=== PATIENT | female | born 1955 | race Caucasian/White ===

== ENCOUNTER 2021-09-20 08:48 | Emergency (ER) | payer MEDICARE, MEDICAID, SELFPAY ==
--- NOTE | ~2021-09-20 | XR_ITS ---
EXAMINATION: [id number] DATE: 09/20/2021 09:31 INDICATION: Left rib pain for one week after lifting fracture. TECHNIQUE: A frontal view of the chest and 2 views on 3 radiographs of the left ribs were obtained. COMPARISON: Chest 2 views 03/23/2019 FINDINGS: There is no pneumonia, pleural effusion, or pneumothorax. The heart size is normal. Surgica l clips in the right upper quadrant are likely from cholecystectomy. IMPRESSION: 1. No rib fracture. Reviewed, dictated and finalized at location A. GAS ANALYST IMPRESSION: 1. No rib fracture.
[2021-09-20 09:00] VITALS: BP 153/62; PULSE 83; RESP 16; TEMP 36.9; O2SAT 98
--- NOTE | 2021-09-20 10:07 | ED.GENADULT ---
HPI - General Adult General Chief complaint: Unspecified Stated complaint: Chest Pain Time Seen by Provider: 09/20/21 09:37 Source: patient and RN notes reviewed Mode of arrival: ambulatory Limitations: no limitations History of Present Illness HPI narrative: Patient presents today complaining of left anterior and lateral rib pain x1 week. She felt and heard a pop in her ribs when she was lifting some furniture 1 week ago and this pain has persisted and worsened since that time. She also reports a cough for the past 2 weeks. Denies shortness of breath. She currently rates her pain 10/10 and has been taking [place] that she takes for her chronic leg pain without relief of her rib pain. Pain increases with deep breath and movement. Patient has IDDM. MD complaint: Cough, rib pain Related Data Home Medications Medication Instructions Recorded Confirmed hydrocodone-acetaminophen 09/20/21 insulin glargine [Lantus Solostar SUBCUT 09/20/21 09/20/21 U-100 Insulin] Allergies Allergy/AdvReac Type Severity Reaction Status Date / Time iodine Allergy Severe Hives Verified 09/20/21 09:24 codeine Allergy Unknown Hives Verified 09/20/21 09:24 venom-honey bee Allergy Unknown Anaphylaxis Verified 09/20/21 09:24 Contrast Media Allergy Unknown Hives Uncoded 09/20/21 09:24 Review of Systems Review of Systems: CONSTITUTIONAL: Denies body aches, fever, chills, or sweats. EYES: Denies visual changes, redness, or discharge. ENT: Denies rhinorrhea, congestion, sore throat, or otalgia. CARDIOVASCULAR: Denies chest pain, palpitations, or edema. RESPIRATORY: Denies dyspnea. + Left rib pain, cough GASTROINTESTINAL: Denies abdominal pain, nausea, vomiting, or diarrhea. GENITOURINARY: Denies dysuria or hematuria. SKIN: Denies rash, itching, or wounds. MUSCULOSKELETAL: Denies back pain, joint pain, or myalgia. NEUROLOGIC: Denies headache, numbness, tingling, or weakness. PSYCH: Denies depression or anxiety. [facility] Family History Family History Mother Carcinoma of colon Acute myocardial infarction Family history of osteoporosis Family history of diabetes mellitus in first degree relative Father Family history of throat cancer Sibling Family history of thyroid disease Family history of seizure disorder Family history of congestive heart failure Other Diabetes mellitus Family history of cardiovascular disease Hypertension Social History Social History Alcohol intake: never Comments At time of signature, I have reviewed and agree with nursing past medical, surgical, social and family history unless otherwise noted. Please see nursing chart for further information. There is no relevant family history pertinent to the presenting complaint Exam Narrative: GENERAL: Well-appearing, well-nourished, and in no acute distress. HEAD: Normocephalic, atraumatic. EYES: EOMI. No redness or drainage. Conjunctivae normal. ENT: Mucous membranes pink and moist. NECK: Normal AROM. CHEST: No respiratory distress. Clear to auscultation. Tenderness to the anterior and lateral left lower ribs. No ecchymosis, erythema, edema, or deformity noted. No crepitus. HEART: Regular rate and rhythm. No murmur appreciated. Normal peripheral pulses. ABDOMEN: Soft, nontender, nondistended, normal active bowel sounds. MUSCULOSKELETAL: No bony tenderness. EXTREMITIES: Normal range of motion. No edema. SKIN: Warm, dry, no rash. Capillary refill normal. Normal skin turgor. NEURO: No focal deficits. Alert and oriented x3. Gait steady. PSYCH: Normal affect. No signs of depression or anxiety. Course Vital Signs Vital signs: Vital Signs Temperature 98.4 F 09/20/21 09:00 Pulse Rate 83 09/20/21 09:00 Respiratory Rate 16 09/20/21 09:00 Blood Pressure 153/62 H 09/20/21 09:00 Pulse Oximetry 98 09/20/21 09:00 T
== END 2021-09-20 10:15 | disposition home or self-care (01) ==
PROVIDERS: Emergency Provider Nurse Practitioner; PCP Family Medicine
DX: R05.9 Cough, unspecified (principal); S29.011A Strain of muscle and tendon of front wall of thorax, initial encounter; X50.0XXA Overexertion from strenuous movement or load, initial encounter; M81.0 Age-related osteoporosis without current pathological fracture; E11.9 Type 2 diabetes mellitus without complications; Z96.659 Presence of unspecified artificial knee joint
CPT/HCPCS: 71101; 99213; G0463

== ENCOUNTER 2022-03-09 09:01 | Emergency (ER) | payer MEDICARE, MEDICAID, SELFPAY ==
[2022-03-09] VITALS (7 sets, daily range): BP systolic 114–183; BP diastolic 64–85; PULSE 61–77; RESP 12–22; TEMP 36.6; O2SAT 98–99
--- NOTE | ~2022-03-09 | NM_ITS ---
EXAMINATION: NM pulmonary perfusion DATE: 03/09/2022 12:35 INDICATION: Chest pain. TECHNIQUE: 5.4 mCi Tc-99m MAA was administered intravenously for perfusion images. Scintigraphic rosa ges of the chest were obtained. COMPARISON: Chest CT 03/09/2022, chest 2 views 03/09/2022 FINDINGS: Perfusion images show large defects in the upper lobes and lower lobes correlating with emphysema by CT. IMPRESSION: 1. Nondiagnostic (intermediate probability for pulmonary embolism). 2. Ultrasound-guided core needle biopsy of a supraclavicular lymph node is recommended given the lymp hadenopathy seen by CT. Reviewed, dictated and finalized at location A. IMPRESSION: 1. Nondiagnostic (intermediate probability for pulmonary embolism). 2. Ultrasound-guided core needle biopsy of a supraclavicular lymph node is mariola mmended given the lymphadenopathy seen by CT.
--- NOTE | ~2022-03-09 | CT_ITS ---
EXAMINATION: CT diagnostic chest wo con DATE: 03/09/2022 10:27 INDICATION: Right paratracheal soft tissue thickening on March 09, 2022 chest radiographic examinatio n TECHNIQUE: Computed tomography (CT) of the chest was performed without intravenous contrast. Automate d exposure control and iterative reconstruction technique were employed. Exam dose: 132.61 mGy-cm to roshan exam DLP. COMPARISON: March 09, 2022 2 view chest FINDINGS: Mild bilateral apical linear scarring. There are bilateral moderate emphysematous changes of the lungs. No pulmonary infiltrate or consolidation. No suspicious pulmonary mass lesion is evident There is superior mediastinal, right paratracheal, precarinal and subcarinal lymphadenopathy Thoracic aortic and coronary artery calcifications. Normal heart size. No pericardial or pleural effusion. Probable splenomegaly. Status post cholecystectomy. Approximately 11.7 x 14.4 left adrenal mass. No suspicious osteolytic or osteoblastic lesions IMPRESSION: Superior mediastinal, right paratracheal, precarinal and subcarinal lymphadenopathy and probable splenomegaly; consider lymphoma. Metastatic disease is included in the differential diagnosis Emphysema Reviewed, dictated and finalized at [facility]. Reviewed, dictated and finalized at location A. IMPRESSION: Superior mediastinal, right paratracheal, precarinal and subcarina l lymphadenopathy and probable splenomegaly; consider lymphoma. Metastatic disease is included in the differential diagnosis Emphysema
--- NOTE | ~2022-03-09 | XR_ITS ---
XR chest 2V DATE: 03/09/2022 09:23 INDICATION: Left-sided arm and jaw pain. Shortness of breath. Dizziness. Nausea. TECHNIQUE: PA and lateral views COMPARISON: 03/23/2019 2 view chest FINDINGS: Normal heart size. Aortic arch calcification. There is some soft tissue thickening in the right paratracheal area compared to 03/23/2019 suggesting possible right paratracheal lymphadenopathy. No hilar enlargement is noted. No pulmonary infiltrate or consolidation, pulmonary mass lesion, pulmonary vascular congestion, pleur al effusion or pneumothorax is detected. Surgical clips, retrocardiac, consistent with cholecystectomy. Diffuse osteopenia. IMPRESSION: Right paratracheal soft tissue thickening suggesting right paratracheal lymphadenopathy; consider CT thorax with IV contrast material Otherwise no active cardiopulmonary disease Aortic atherosclerosis Osteopenia Status post cholecystectomy Reviewed, dictated and finalized at location A. IMPRESSION: Right paratracheal soft tissue thickening suggesting right paratrac heal lymphadenopathy; consider CT thorax with IV contrast material Otherwise no active cardiopulmonary disease Aortic atherosclerosis Osteopenia Status post cholecystectomy
--- NOTE | 2022-03-09 09:03 | ECG_ITS ---
Measurements Intervals [place] Rate: 74 P: 70 NE: 170 QRS: 36 QRSD: 103 T: 60 QT: 395 QTc: 438 Interpretive Statements SINUS RHYTHM POOR R-WAVE PROGRESSION, CANNOT RULE OUT AN OLD ANTEROSEPTAL MYOCARDIAL INFARCTION COMPARED TO ECG 03/23/2019 14:11:00 R-WAVE PROGRESSION IS SLIGHTLY DIFFERENT, LIKELY A LEAD PLACEMENT ISSUE. Electronically Signed On 03-09-2022 13:47:31 CDT by Jeanette Sosa M.D.
[2022-03-09 09:18] LABS: Basophils Percent Auto 0.8 % (0.2-1.2); Eosinophils Absolute Auto 0.1 K/mm3 (0-0.3); Eosinophils Percent Auto 1.8 % (0-4.4); Hemoglobin 12.9 g/dL (12.0-15.0); Immature Granulocyte Absolute 0.01 K/mm3 (0.00-0.031); Immature Granulocyte Percent A 0.2 % (0-0.5); Lymphocytes Absolute Auto 1.35 K/mm3 (0.9-3.2); Lymphocytes Percent Auto 26.4 % (18.3-44.2); Mean Corpuscular HGB Conc 31.5 g/dl (32-36); Mean Corpuscular Hemoglobin 27.8 pg (26-34); Mean Corpuscular Volume 88.4 fl (80-100); Mean Platelet Volume 10.4 fl (7.4-10.4); Monocytes Absolute Auto 0.4 K/mm3 (0.1-0.6); Monocytes Percent Auto 6.8 % (2.6-8.5); Neutrophils Absolute Auto 3.3 K/mm3 (1.3-6.7); Platelet Count Result 167 k/mm3 (150-375); Red Blood Count 4.64 M/mm3 (4.2-5.4); Red Cell Distribution Width 15.9 % (11.5-14.5); White Blood Count 5.1 K/mm3 (4.5-10.0)
[2022-03-09] MEDS: ASPIRIN 81 MG CHEWABLE TABLET 324 MG PO (09:18)
[2022-03-09 09:29] LABS: INR 1.1; Partial Thromboplastin Time 26.4 SECONDS (22.3-36.8); Prothrombin Time 13.5 Seconds (11.1-14.7)
--- NOTE | 2022-03-09 09:34 | ED.CHESTPAIN ---
HPI - Chest Pain General Chief Complaint: Chest Pain Stated Complaint: chest pain Time Seen by Provider: 03/09/22 09:31 Source: patient Mode of arrival: ambulatory Limitations: no limitations History of Present Illness HPI narrative: Patient is a 66-year-old female complaining of chest pain, midsternal, tightness, 6 out of 10, radiating to left arm and jaw accompanied by shortness of breath, dizziness and nausea that started 1 week ago. Patient denies any abdominal pain, vomiting, diaphoresis, fever or chills. Related Data Home Medications Medication Instructions Recorded Confirmed hydrocodone-acetaminophen 09/20/21 insulin glargine [Lantus Solostar SUBCUT 09/20/21 09/20/21 U-100 Insulin] Allergies Allergy/AdvReac Type Severity Reaction Status Date / Time iodine Allergy Severe Hives Verified 03/09/22 09:13 codeine Allergy Unknown Hives Verified 03/09/22 09:13 venom-honey bee Allergy Unknown Anaphylaxis Verified 03/09/22 09:13 Contrast Media Allergy Unknown Hives Uncoded 03/09/22 09:13 Review of Systems Review of Systems: All systems reviewed & are unremarkable except as noted in HPI and below Constitutional: Constitutional: Denies body ache(s), Denies chills, Denies excessive sweating, Denies fatigue, Denies fever(s), Denies headache(s), Denies lethargy, Denies malaise, Denies weakness and Denies weight loss Eyes: Eyes: Denies blurry vision, Denies change in vision and Denies loss of vision ENT: Denies dizziness, Denies ear discharge, Denies headache(s), Denies lip swelling, Denies epistaxis, Denies nasal congestion, Denies neck pain, Denies throat swelling and Denies tongue swelling Cardiovascular: Cardiovascular: Denies diaphoresis, Denies rapid heart rate, Denies edema, Denies irregular heart rhythm, Denies lightheadedness, Denies palpitations and Denies dyspnea on exertion Respiratory: Respiratory: Denies chest congestion, Denies cough, Denies hemoptysis and Denies dyspnea on exertion Gastrointestinal: Gastrointestinal: Denies abdominal pain, Denies melena, Denies hematochezia, Denies diarrhea, Denies vomiting and Denies hematemesis Musculoskeletal: Musculoskeletal: Denies abnormal gait, Denies deformity, Denies joint swelling, Denies limited range of motion, Denies neck pain and Denies numbness Neurologic: Denies Abnormal speech present, Denies abnormal gait, Denies confusion, Denies dizziness, Denies headache(s), Denies focal weakness, Denies loss of vision, Denies numbness, Denies Other visual disturbances, Denies Sensory deficit (Neuro) and Denies weakness Psychiatric: Psychiatric: Denies confusion, Denies depression, Denies auditory hallucinations, Denies homicidal ideation and Denies suicidal ideation Endocrine: Endocrine: Denies cold intolerance, Denies excessive sweating, Denies fatigue, Denies heat intolerance and Denies palpitations Hematologic/Lymphatic: Hematologic/Lymphatic: Denies easy bleeding and Denies easy bruising Allergic/Immunologic: Allergic/Immunologic: Denies lip swelling, Denies throat swelling and Denies tongue swelling PMFSH Family History Family History Mother Carcinoma of colon Acute myocardial infarction Family history of osteoporosis Family history of diabetes mellitus in first degree relative Father Family history of throat cancer Sibling Family history of thyroid disease Family history of seizure disorder Family history of congestive heart failure Other Diabetes mellitus Family history of cardiovascular disease Hypertension Social History Social History Alcohol intake: never Comments Past medical history: Diabetes Social history: Non-smoker no EtOH or drug use Exam Const: General: cooperative, healthy appearing, comfortable, no acute distress, well developed, alert and awake; No confusion Orientation/consciousness: oriented to perso
[2022-03-09 09:38] LABS: Alanine Aminotransferase 21 U/L (4-35); Albumin Level 4.4 g/dL (3.5-5.1); Alkaline Phosphatase 80 U/L (38-126); Anion Gap 8 mmol/L (8-16); Aspartate Amino Transferase 33 U/L (14-36); Blood Urea Nitrogen 6 mg/dL (7-17); Carbon Dioxide 26 mmol/L (22-30); Chloride 105 mmol/L (98-107); Estimated CRCL calculation 92 ml/min; Estimated Glomerular Filt Rate > 60; Glucose 234 mg/dL (65-110); Lipase 71 U/L (23-300); Potassium 4.3 mmol/L (3.4-5.0); Sodium 139 mmol/L (137-145)
[2022-03-09 09:45] LABS: Troponin I < 0.012 ng/mL (0.000-0.034)
[2022-03-09 12:25] LABS: Troponin I < 0.012 ng/mL (0.000-0.034)
--- NOTE | 2022-03-09 13:47 | PC.NURSE ---
EDP made aware that patient is requesting test results.
== END 2022-03-09 14:12 | disposition left against medical advice (07) ==
PROVIDERS: Emergency Provider Emergency Medicine; PCP Family Medicine
DX: R07.89 Other chest pain (principal); E11.9 Type 2 diabetes mellitus without complications; Z79.4 Long term (current) use of insulin; R59.1 Generalized enlarged lymph nodes
CPT/HCPCS: 36415; 71046; 71250; 78580; 80053; 83690; 84484; 85025; 85380; 85610; 85730; 93005; 99284; A9270; A9540

== ENCOUNTER 2022-04-13 12:04 | Emergency (ER) | payer MEDICARE, MEDICAID, SELFPAY ==
[2022-04-13 12:11] VITALS: BP 146/55; PULSE 85; RESP 16; TEMP 36.5; O2SAT 100
--- NOTE | 2022-04-13 12:51 | ED.SKABFB ---
HPI - Skin/Abscess/Foreign Bdy General Chief complaint: Skin/Abscess/Foreign Body Stated complaint: cyst Source: patient Mode of arrival: ambulatory Limitations: no limitations History of Present Illness HPI narrative: 66-year-old female presented for complaint of cyst to left LEA area, on and off for about 3 weeks. She states it flares up and goes back down. She has been applying warm compresses to it. She states that popped and she noted bleeding and pus to the site. Continues to endorse pain. Denies any other locations of lesions. Endorses a history of these cysts to the LEA area. She is currently diagnosed with stage IV lung cancer, started chemotherapy, and notes nosebleed this morning after she blew her nose as well. She denies fever, chills, nausea, vomiting, diarrhea. MD complaint: rash Related Data Home Medications Medication Instructions Recorded Confirmed insulin glargine 100 unit/mL (3 1 unit subcut DIRECTED 09/20/21 04/13/22 mL) subcutaneous pen (Lantus Solostar U-100 Insulin) dexamethasone 4 mg tablet 1 tablet PO DIRECTED 04/13/22 04/13/22 famotidine 20 mg tablet 1 tablet PO DAILY 04/13/22 04/13/22 fluticasone fur. 100 mcg-umeclid 1 inh inhalation DIRECTED 04/13/22 04/13/22 62.5 mcg-vilant 25 mcg inhalat.powder (Trelegy Ellipta) hydrocodone 7.5 mg-acetaminophen 1 tablet PO DIRECTED 04/13/22 04/13/22 325 mg tablet insulin aspart U-100 100 unit/mL 1 unit subcut DIRECTED 04/13/22 04/13/22 subcutaneous solution (Novolog U-100 Insulin aspart) ipratropium 20 mcg-albuterol 100 2 spray inhalation DIRECTED 04/13/22 04/13/22 mcg/actuation mist for inhalation (Combivent Respimat) nitroglycerin 0.4 mg sublingual 0.4 mg sublingual DIRECTED 04/13/22 04/13/22 tablet ondansetron HCl 8 mg tablet 1 tablet PO DIRECTED 04/13/22 04/13/22 prochlorperazine maleate 10 mg 10 tablet PO DIRECTED 04/13/22 04/13/22 tablet Allergies Allergy/AdvReac Type Severity Reaction Status Date / Time iodine Allergy Severe Hives Verified 03/09/22 09:13 codeine Allergy Unknown Hives Verified 03/09/22 09:13 venom-honey bee Allergy Unknown Anaphylaxis Verified 03/09/22 09:13 Contrast Media Allergy Unknown Hives Uncoded 03/09/22 09:13 Review of Systems Review of Systems: CONSTITUTIONAL: Denies body aches, fever, chills, or sweats. CARDIOVASCULAR: Denies chest pain, palpitations, or edema. RESPIRATORY: Denies cough or dyspnea. SKIN: endorses cyst and bruising from needle sticks MUSCULOSKELETAL: Denies back pain, joint pain, or myalgia. NEUROLOGIC: Denies headache, numbness, tingling, or weakness. [facility] Family History Family History Mother Carcinoma of colon Acute myocardial infarction Family history of osteoporosis Family history of diabetes mellitus in first degree relative Father Family history of throat cancer Sibling Family history of thyroid disease Family history of seizure disorder Family history of congestive heart failure Other Diabetes mellitus Family history of cardiovascular disease Hypertension Social History Social History Alcohol intake: never Comments At time of signature, I have reviewed and agree with nursing past medical, surgical, social and family history unless otherwise noted. Please see nursing chart for further information. There is no relevant family history pertinent to the presenting complaint Exam Narrative: GENERAL: ill-appearing, nontoxic ENT: Mucous membranes moist. Oropharynx without edema, erythema or lesions. NECK: Supple. No lymphadenopathy CHEST: Clear to auscultation. No respiratory distress. HEART: Regular rate and rhythm. SKIN: Warm, dry. firm abscess approx 0.5cm diameter to left mid lea area, tender to palpation, no fluctuance or active drainage NEURO: Alert and oriented x3. Course Course
== END 2022-04-13 13:05 | disposition home or self-care (01) ==
PROVIDERS: Emergency Provider Nurse Practitioner Family
DX: L02.31 Cutaneous abscess of buttock (principal); C34.90 Malignant neoplasm of unspecified part of unspecified bronchus or lung; Z79.899 Other long term (current) drug therapy; I25.10 Atherosclerotic heart disease of native coronary artery without angina pectoris; K21.9 Gastro-esophageal reflux disease without esophagitis; M81.0 Age-related osteoporosis without current pathological fracture; E11.9 Type 2 diabetes mellitus without complications; Z96.659 Presence of unspecified artificial knee joint
CPT/HCPCS: 99213; G0463